=== PATIENT | female | born 1995 | race Caucasian/White ===

== ENCOUNTER 2016-12-04 12:27 | Emergency (ER) | payer OTHER ==
[~2016-12-04] VITALS: Ht 165.1 cm; Wt 52.9 kg
[2016-12-04 12:31] VITALS: BP 130/81; PULSE 93; TEMP 36.5; O2SAT 99; Ht 165.1 cm; Wt 52.9 kg
[2016-12-04] MEDS ORDERED: BCPILLS PO (12:41)
[2016-12-04] MEDS ORDERED: RABIES VACCINE (IMOVAX) HUMAN DIPL CELL 2.5 INTER.UNIT/ML SYR IM. ONE (12:45)
--- NOTE | 2016-12-04 12:58 | EMERGENCY ROOM VISIT NOTE ---
ED Visit Note First contact with patient: 12:38 CHIEF COMPLAINT: Final rabies vaccine HISTORY OF PRESENT ILLNESS: Patient is a 21-year-old white female who presents to the emergency department requesting her final rabies post exposure prophylaxis injection. Patient is from [facility], she is here for the weekend. She was bitten by a cat on the right wrist 2 weeks ago. She received her prior injections in [place]. She does have a prescription which confirmed the dates. She denies any problems with the prior vaccinations. She does report that she saw the cat a few days ago, and it was healthy. REVIEW OF SYSTEMS: Review of systems as per HPI. All other systems reviewed were negative. At least 6 systems reviewed. PMH: Patient is otherwise healthy without chronic medical problems. SOCIAL HISTORY: Patient lives at home in [place]. Student. PHYSICAL EXAM: Vital Signs: Reviewed Nurse's notes. HEAD: Atraumatic, without temporal or scalp tenderness. EYES: PERRL, EOMI, no discharge or injection. SKIN: Normal. NEUROLOGICAL: Alert and cooperative. Sensory and motor functions grossly intact. EMERGENCY DEPARTMENT COURSE: The patient was seen and evaluated as above. The patient's prescription notes that she received RabAvert. I spoke with clinical pharmacist, and confirmed from the [facility] website RabAvert and Imovax are interchangeable. I did discuss this with the patient and she expressed understanding and was agreeable to proceed. She was given Imovax IM, observed and discharge. Current/Historical Medications Scheduled Control Pills ( Control Pills), 1 TAB PO DAILY Allergies Coded Allergies: No Known Allergies (Unverified , 12/04/16) Vital Signs Date Time Temp Pulse Resp B/P (MAP) Pulse Ox O2 Delivery O2 Flow Rate FiO2 12/04/16 12:31 36.5 93 20 130/81 99 Room Air Medications Administered Medications (Trade) Dose Ordered Sig/Jose Roberto Route Start Time Stop Time Status Last Admin Dose Admin Rabies Vaccine Human Diploid Cell (Imovax Rabies) 2.5 interunit ONCE ONCE IM. 12/04/16 12:45 12/04/16 12:55 DC 12/04/16 13:03 2.5 INTERUNIT Departure Information Impression Primary Impression: Need for prophylactic vaccination against rabies Referrals No Doctor, Assigned (PCP) Patient Instructions [facility] Additional Instructions Follow-up with your primary care provider or return to the emergency department as needed.
== END 2016-12-04 13:13 | disposition home or self-care (01) ==
LOC: C.EDB 12:29 → C.EDD 13:13
DX: Z23 Encounter for immunization (principal); Z20.3 Contact with and (suspected) exposure to rabies; S61.551D Open bite of right wrist, subsequent encounter; W55.01XD Bitten by cat, subsequent encounter